=== PATIENT | male | born 1955 | race Caucasian/White ===

== ENCOUNTER 2016-12-30 11:20 | Emergency (ER) | payer MEDICARE, OTHER ==
[~2016-12-30] VITALS: Ht 172.7 cm; Wt 90.7 kg
[~2016-12-30 11:20] MED LIST: ASPI81TA2 PO; ATOR10TA PO; CLOP75TA2 PO; CYCL5TAB PO; LOSA1TAB36 PO; MELO-264 PO; METO25TA6 PO; PANT40TA4 PO; TRAZ-144 PO
[2016-12-30 11:28] VITALS: BP 163/93
[2016-12-30 12:22] LABS: CALCIUM, SERUM 8.6 mg/dL (8.5-10.1); CREATININE 1.4 mg/dL (0.6-1.3); POTASSIUM 3.8 mmol/L (3.5-5.1)
--- NOTE | 2016-12-30 12:33 | NUR ---
PT. VERBALIZED UNDERSTANDING OF AFTERCARE INSTRUCTIONS.Patient discharged to home in stable condition. Written and verbal after care instructions given. Patient verbalizes understanding of instruction.
== END 2016-12-30 12:35 | disposition home or self-care (01) ==
LOC: ER 11:23
DX: N19 Unspecified kidney failure (principal); I10 Essential (primary) hypertension; E78.5 Hyperlipidemia, unspecified; I25.2 Old myocardial infarction; F17.200 Nicotine dependence, unspecified, uncomplicated; I25.10 Atherosclerotic heart disease of native coronary artery without angina pectoris; Z79.82 Long term (current) use of aspirin; Z95.818 Presence of other cardiac implants and grafts; Z87.442 Personal history of urinary calculi
CPT/HCPCS: 36415; 80048; 99283; A4606; Z7610